=== PATIENT | female | born 1960 | race Two or more races ===

== ENCOUNTER 2018-03-09 05:44 | Emergency (ER) | payer SELFPAY ==
[~2018-03-09] VITALS: Ht 167.6 cm; Wt 59.0 kg
[2018-03-09 06:29] LABS: BILIRUBIN,URINE NEGATIVE (NEG); CLARITY,URINE CLEAR; COLOR,URINE YELLOW; NITRITE,URINE NEGATIVE (NEG); PROTEIN,URINE NEGATIVE (NEG-TRACE)
[2018-03-09 06:29] LABS: BASO % 1 % (0-3); EOS # 0.2 x10^3/uL (0.0-0.7); EOS % 4 % (0-3); HEMATOCRIT 34.7 % (36.0-47.0); HEMOGLOBIN 10.8 g/dL (12.0-15.5); LYMPH # 2.1 x10^3/uL (1.0-4.8); LYMPH % 35 % (24-48); MEAN CORPUSCULAR HEMOGLOBIN 19 pg (25-35); MEAN CORPUSCULAR HGB CONC 31 g/dL (31-37); MEAN CORPUSCULAR VOLUME 61 fL (79-100); MONO # 0.5 x10^3/uL (0.0-1.1); MONO % 9 % (0-9); NEUT # 3.2 x10^3uL (1.8-7.7); NEUT % 52 % (31-73); PLATELET COUNT 156 x10^3/uL (140-400); RED BLOOD COUNT 5.69 x10^6/uL (3.50-5.40); WHITE BLOOD COUNT 6.1 x10^3/uL (4.0-11.0)
[2018-03-09 06:37] LABS: BACTERIA,URINE 0 /HPF (0-FEW); RBC,URINE 0 /HPF (0-2); SQUAMOUS EPITHELIAL CELL,UR FEW /LPF
[2018-03-09 06:39] LABS: CREATININE ISTAT 0.6 mg/dL (0.5-1.4); HEMOGLOBIN ISTAT 11.6 g/dL (12-15); ION CA ISTAT 1.2 mmol/L (1.13-1.32); POTASSIUM ISTAT 3.9 mmol/L (3.5-5.0)
[2018-03-09 06:45] LABS: ALBUMIN 3.5 g/dL (3.4-5.0); DIRECT BILIRUBIN 0.1 mg/dL (0.0-0.2); TOTAL BILIRUBIN 0.6 mg/dL (0.2-1.0); TOTAL PROTEIN 7.7 g/dL (6.4-8.2)
--- NOTE | 2018-03-09 06:49 | PHYS DOC ---
Past Medical History Past Medical History: Diabetes-Type II Past Surgical History: No Surgical History Alcohol Use: None Drug Use: None Adult General Chief Complaint Chief Complaint: ABDOMINAL PAIN [facility] HPI Patient is a 58 year old F who presents with right-sided abdominal pain. This has been going on for 1 month. She went to see her doctor and was found to be very constipated. She was given some laxatives and has since been having bowel movements every day. She said about a month ago she had blood in her stool but has not had any symptoms, at that time she had very hard stools. She denies chest pain, vomiting, blood in vomit, fevers, chills, pain with urination. She said her last menstrual period was 9 years ago. She denies prior history of abdominal surgeries. She does not smoke drink or use any drugs. Review of Systems Review of Systems Constitutional: Denies fever or chills Eyes: Denies change in visual acuity, redness, or eye pain HENT: Denies nasal congestion or sore throat Respiratory: Denies cough or shortness of breath Cardiovascular: No additional information not addressed in HPI GI: Endorses abd pain, denies nausea, vomiting, bloody stools or diarrhea : Denies dysuria or hematuria Musculoskeletal: Denies back pain or joint pain Integument: Denies rash or skin lesions Neurologic: Denies headache, focal weakness or sensory changes Endocrine: Denies polyuria or polydipsia All other systems were reviewed and found to be within normal limits, except as documented in this note. Current Medications Current Medications Current Medications Medications (Trade) Dose Ordered Sig/[facility] Start Time Stop Time Status Last Admin Dose Admin Fentanyl Citrate (Fentanyl 2ml Vial) 50 mcg 1X ONCE 03/09/18 07:15 03/09/18 07:16 DC 03/09/18 07:19 50 MCG Allergies Allergies Allergies Coded Allergies Type Severity Reaction Last Updated Verified No Known Drug Allergies 06/28/13 No Physical Exam Physical Exam Constitutional: Well developed, well nourished, no acute distress, non-toxic appearance. HENT: Normocephalic, atraumatic, bilateral external ears normal, oropharynx moist, no oral exudates, nose normal. Eyes: PERRLA, EOMI, conjunctiva normal, no discharge. Neck: Normal range of motion, no tenderness, supple, no stridor. Cardiovascular:Heart rate regular rhythm, no murmur Lungs & Thorax: Bilateral breath sounds clear to auscultation Abdomen: Bowel sounds normal, soft, no masses, no pulsatile masses; TTP RUQ Skin: Warm, dry, no erythema, no rash. Back: No tenderness, no CVA tenderness. Extremities: No tenderness, no cyanosis, no clubbing, ROM intact, no edema. Neurologic: Alert and oriented X 3, normal motor function, normal sensory function, no focal deficits noted. Psychologic: Affect normal, judgement normal, mood normal. Current Patient Data Vital Signs Vital Signs Date Time Temp Pulse Resp B/P (MAP) Pulse Ox O2 Delivery O2 Flow Rate FiO2 03/09/18 08:05 74 119/63 (81) 99 Room Air 03/09/18 07:50 12 03/09/18 05:50 98.2 98.2 Lab Values Laboratory Tests Test 03/09/18 05:50 03/09/18 06:15 03/09/18 06:35 Urine Collection Type Unknown Urine Color Yellow Urine Clarity Clear Urine pH 6.0 Urine Specific [place] 1.020 Urine Protein Negative mg/dL (NEG-TRACE) Urine Glucose (UA) Negative mg/dL (NEG) Urine Ketones (Stick) Negative mg/dL (NEG) Urine Blood Negative (NEG) Urine Nitrite Negative (NEG) Urine Bilirubin Negative (NEG) Urine Urobilinogen Dipstick 1.0 mg/dL (0.2 mg/dL) Urine Leukocyte Esterase Large (NEG) Urine RBC 0 /HPF (0-2) Urine WBC 11-20 /HPF (0-4) Urine Squamous Epithelial Cells Few /LPF Urine Bacteria 0 /HPF (0-FEW) White Blood Count 6.1 x10^3/uL (4.0-11.0) Red Blood Count 5.69 x10^6/uL (3.50-5.40) H Hemoglobin 10.8 g/dL (12.0-15.5) L Hematocrit 34.7 % (36.0-47.0) L Mean Corpuscular Volume 61 fL (79-100) L Mean Corpuscular Hemoglobin 19 pg (25-35) L Mean Corpuscular Hemoglobin Concent 31 g/dL (31-37) Red Cell Distribution Width 17.0 % (11.5-14.5) H Platelet Count 156 x10^3/uL (140-400) Neutrophils (%) (Auto) 52 % (31-73) Lymphocytes (%) (Auto) 35 % (24-48) Monocytes (%) (Auto) 9 % (0-9) Eosinophils (%) (Auto) 4 % (0-3) H Basophils (%) (Auto) 1 % (0-3) Neutrophils # (Auto) 3.2 x10^3uL (1.8-7.7) Lymphocytes # (Auto) 2.1 x10^3/uL (1.0-4.8) Monocytes # (Auto) 0.5 x10^3/uL (0.0-1.1) Eosinophils # (Auto) 0.2 x10^3/uL (0.0-0.7) Basophils # (Auto) 0.0 x10^3/uL (0.0-0.2) Platelet Estimate Adequate (ADEQUATE) Hypochromasia Present Anisocytosis Present Microcytosis Present Total Bilirubin 0.6 mg/dL (0.2-1.0) Direct Bilirubin 0.1 mg/dL (0.0-0.2) Aspartate Amino Transferase (AST) 11 U/L (15-37) L Alanine Aminotransferase (ALT) 23 U/L (14-59) Alkaline Phosphatase 88 U/L (46-116) Total Protein 7.7 g/dL (6.4-8.2) Albumin 3.5 g/dL (3.4-5.0) Lipase 106 U/L (73-393) POC Hemoglobin 11.6 g/dL (12-15) L POC Hematocrit 34 % (36-40) L POC Sodium 139 mmol/L (135-145) POC Potassium 3.9 mmol/L (3.5-5.0) POC Chloride 103 mmol/L (98-110) POC Total CO2 25 mmol/L (23-32) Anion Gap 16 mmol/L (6-14) H POC Blood Urea Nitrogen 21 mg/dL (8-26) POC Creatinine 0.6 mg/dL (0.5-1.4) Glucose Level 228 mg/dL (70-99) H POC Ionized Calcium (Max) 1.20 mmol/L (1.13-1.32) Laboratory Tests 03/09/18 06:15 Laboratory Tests 03/09/18 06:35 Course & Med Decision Making Course & Med Decision Making Pertinent Labs and Imaging studies reviewed. (See chart for details) 58-year-old female with history of constipation presents for right-sided, right upper quadrant abdominal pain. Her abd is soft, no RLQ tenderness, no fevers, anorexia, nausea/vomiting or other signs/sx to suggest appendicitis. Check labs including LFTs and lipase. Right upper quadrant ultrasound to rule out cholecystitis. Check urine. 0755: Labs and US are unremarkable. Pain resolved. UA shows UTI. DC home. Follow up with PMD. Discussed return precatuions. Dragon Disclaimer Dragon Disclaimer This electronic medical record was generated, in whole or in part, using a voice recognition dictation system. Departure Departure Impression: Primary Impression: UTI (urinary tract infection) Disposition: 01 HOME, SELF-CARE Condition: GOOD Referrals: NO PCP (PCP) Patient Instructions: Urinary Tract Infection Scripts Cephalexin (KEFLEX) 500 Mg Capsule 1 CAP PO BID PRN for PAIN for 7 Days, #14 CAP 0 Refills Prov: LANDY QUINONEZ MD 03/09/18 Problem Qualifiers Primary Impression: UTI (urinary tract infection) Urinary tract infection type: acute cystitis Hematuria presence: without hematuria Qualified Codes: N30.00 - Acute cystitis without hematuria LANDY QUINONEZ MD Mar 09, 2018 06:49
[2018-03-09] MEDS ORDERED: fentaNYL PF VIAL 100 MCG/2 ML VIAL IV ONE (07:15)
--- NOTE | 2018-03-09 07:29 | RAD ---
DATE OF SERVICE: 03/09/2018 6:05 AM EXAM: Abdominal ultrasound - limited CLINICAL HISTORY: Right upper quadrant pain. TECHNIQUE: Transabdominal ultrasound of the right upper quadrant was performed. COMPARISON: None available. FINDINGS: The liver is normal in size and morphology. It demonstrates normal echogenicity. No focal hepatic lesion is identified. The portal vein is patent and demonstrates hepatopetal flow. No intrahepatic biliary ductal dilatation is identified. The gallbladder is unremarkable in appearance. The common hepatic/common bile duct is normal in diameter, measuring 5-6 mm. The pancreas was suboptimally visualized but is unremarkable in appearance as visualized. The right kidney measures 11.4 x 5.2 x 4.2 cm. There is no mass lesion, shadowing calculus, or hydronephrosis. The inferior vena cava is patent. No ascites is seen. IMPRESSION: Suboptimal evaluation of the pancreas. Otherwise, unremarkable sonographic evaluation of the right upper quadrant. Electronically signed by: Lazarus Carrasco MD (03/09/2018 7:24 AM) [facility]
[2018-03-09] MEDS ORDERED: CEPH-264 PO (08:01)
[2018-03-09 08:05] VITALS: BP 119/63
[2018-03-09 08:38] LABS: PLT ESTIMATE ADEQUATE (ADEQUATE)
[2018-03-09 08:39] LABS: ANISOCYTOSIS PRESENT; HYPOCHROMIA PRESENT; MICROCYTOSIS PRESENT
== END 2018-03-09 08:12 | disposition home or self-care (01) ==
LOC: ER 05:44
DX: N39.0 Urinary tract infection, site not specified (principal); R10.11 Right upper quadrant pain; E11.9 Type 2 diabetes mellitus without complications
CPT/HCPCS: 36415; 76705; 80047; 80076; 81001; 83690; 85025; 96374; 99284; J3010

== ENCOUNTER 2018-12-07 21:44 | Emergency (ER) | payer SELFPAY ==
[~2018-12-07] VITALS: Ht 167.6 cm; Wt 63.5 kg
[~2018-12-07 21:44] MED LIST: CEPH-264 PO
[2018-12-07 21:55] VITALS: BP 149/62
--- NOTE | 2018-12-07 22:31 | PHYS DOC ---
Past Medical History Past Medical History: Diabetes-Type II Past Surgical History: No Surgical History Alcohol Use: None Drug Use: None Adult General Chief Complaint Chief Complaint: INSECT BITE HPI HPI Patient is a 58 year old [place]ian-speaking female who presents to the ED today with a rash on the right thigh that began 4 days ago. Patient describes the rash as a burning sensation. Patient denies any fever. Interpretation was provided by family Review of Systems Review of Systems Constitutional: Denies fever or chills [] Musculoskeletal: Denies back pain or joint pain [] Integument: Reports rash to the right thigh Neurologic: Denies headache, focal weakness or sensory changes [] All other systems were reviewed and found to be within normal limits, except as documented in this note. Allergies Allergies Allergies Coded Allergies Type Severity Reaction Last Updated Verified No Known Drug Allergies 06/28/13 No Physical Exam Physical Exam Constitutional: Well developed, well nourished, no acute distress, non-toxic appearance. [] Skin: Warm, dry, right lateral thigh with an area of clustered opened up blisters approximately 2 x 2 centimeters with surrounding erythema. No drainage. Back: No tenderness, no CVA tenderness. [] Extremities: No tenderness, no cyanosis, no clubbing, ROM intact, no edema. [] Neurologic: Alert and oriented X 3, normal motor function, normal sensory function, no focal deficits noted. [] Psychologic: Affect normal, judgement normal, mood normal. [] Current Patient Data Vital Signs Vital Signs Date Time Temp Pulse Resp B/P (MAP) Pulse Ox O2 Delivery O2 Flow Rate FiO2 12/07/18 21:55 98.5 82 18 149/62 (91) 96 Room Air 98.5 EKG EKG [] Radiology/Procedures Radiology/Procedures [] Course & Med Decision Making Course & Med Decision Making Pertinent Labs and Imaging studies reviewed. (See chart for details) This is a 58-year-old female patient who has infected shingles. Will be discharged with antibiotics as well as supportive care medications. Follow-up w suhas PCP in 1-2 weeks Obdulio Disclaimer Dragon Disclaimer This electronic medical record was generated, in whole or in part, using a voice recognition dictation system. Departure Departure Impression: Primary Impression: Shingles Disposition: 01 HOME, SELF-CARE Condition: STABLE Referrals: NO PCP (PCP) follow up with your doctor in two week Patient Instructions: [facility]inv[facility]ash, [id number] Additional Instructions: You have shingles infection. We'll put you on several medications, take them as prescribed. Scripts Tramadol Hcl (TRAMADOL HCL) 50 Mg Tablet 50 MG PO Q6HRS PRN for PAIN, #30 TAB Prov: LENY VALLEJO APRN 12/07/18 Prednisone (PREDNISONE) 50 Mg Tablet 1 TAB PO DAILY, #5 TAB Prov: LENY VALLEJO APRN 12/07/18 Acyclovir (ACYCLOVIR) 800 Mg Tablet 1 TAB PO 5XDAY, #50 TAB Prov: LENY VALLEJO APRN 12/07/18 Cephalexin (CEPHALEXIN) 500 Mg Tablet 1 TAB PO TID, #30 TAB Prov: LENY VALLEJO APRN 12/07/18 Problem Qualifiers Primary Impression: Shingles Herpes zoster complications: without complications Qualified Codes: B02.9 - Zoster without complications LENY VALLEJO APRN Dec 07, 2018 22:31
[2018-12-07] MEDS ORDERED: CEPH500T PO (22:35)
[2018-12-07] MEDS ORDERED: ACYC800T PO (22:35)
[2018-12-07] MEDS ORDERED: TRAM50TA PO (22:35)
[2018-12-07] MEDS ORDERED: PRED50TA PO (22:35)
== END 2018-12-07 23:01 | disposition home or self-care (01) ==
LOC: ER 21:44
DX: B02.9 Zoster without complications (principal); E11.9 Type 2 diabetes mellitus without complications
CPT/HCPCS: 99283